=== PATIENT | female | born 1995 | race Caucasian/White ===

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

== ENCOUNTER 2017-10-28 01:33 | Emergency (ER) | payer BC ==
--- NOTE | 2017-10-28 01:38 | EDPHY ---
H & P Time Seen by Provider: 10/28/17 01:36 HPI/ROS: HPI CHIEF COMPLAINT: Alcohol Intoxication HISTORY OF PRESENT ILLNESS: 22-year-old female, presents emergency room by EMS for acute alcohol intoxication and possibly ketamine use. Patient is lethargic. Blood glucose by EMS 88. Patient presents with stable vital signs. Is reported that she did ketamine and a large amount of alcohol this evening. Past Medical History: Unknown medical history Past Surgical History: Unknown surgical history Social History: Alcohol and ketamine, this evening Family History: Unknown ROS REVIEW OF SYSTEMS: Limited due to mental state. Exam Constitutional Intoxicated, lethargic, triage nursing summary reviewed, vital signs reviewed, Sleepy, smells of alcohol Eyes normal conjunctivae and sclera, horizontal beating nystagmus consistent acute alcohol intoxication, otherwise pupils equal and react to light HENT normal inspection, atraumatic, moist mucus membranes, no epistaxis, neck supple/ no meningismus, no raccoon eyes. Respiratory clear to auscultation bilaterally, normal breath sounds, no respiratory distress, no wheezing. Cardiovascular rate normal, regular rhythm, no murmur, no edema, distal pulses normal. Gastrointestinal soft, non-tender, no rebound, no guarding, normal bowel sounds, no distension, no pulsatile mass. Genitourinary no CVA tenderness. Musculoskeletal no midline vertebral tenderness, full range of motion, no calf swelling, no tenderness of extremities, no meningismus, good pulses, neurovascularly intact. Skin pink, warm, & dry, no rash, skin atraumatic. Neurologic sleepy, intoxicated with alcohol,, alert and oriented x 3, AAOx3, moves all 4 extremities equally, motor intact, sensory intact, CN II-XII intact , , normal vision, normal speech. Psychiatric normal mood/affect. Heme/Lymph/Immune no lymphadenopathy. Differential Diagnosis: Includes but is not limited to in a particular order acute alcohol intoxication, alcohol abuse, dehydration, electrolyte abnormality , nausea vomiting from acute alcohol intoxication Medical Decision Making: Plan for this patient full quality assurance monitor final with pulse ox, IV establishment blood draw, check drug screen, alcohol level, gentle IV fluids. Watch for further sedation. Re-evaluation: Serum alcohol level 374 2:40 a.m.. 0647: Patient ambulated well throughout the emergency room without difficulty. Sober. Stable gait. Safe for discharge. Source: Patient, EMS Constitutional: Initial Vital Signs Temperature (C) 36.4 C 10/28/17 01:43 Heart Rate 59 L 10/28/17 01:43 Respiratory Rate 20 10/28/17 01:43 Blood Pressure 105/60 10/28/17 01:43 O2 Sat (%) 95 10/28/17 01:43 O2 Delivery Mode Room Air Allergies/Adverse Reactions: Unable to Assess Allergy (Unverified 10/28/17 01:42) Home Medications: Medication Instructions Recorded Unobtainable 10/28/17 Medical Decision Making - Data Points Laboratory Results: Laboratory Results 10/28/17 02:00 10/28/17 02:00 Medications Given: Discontinued Medications Sodium Chloride (Ns) 1,000 mls @ 0 mls/hr IV EDNOW ONE; Wide Open PRN Reason: Protocol Stop: 10/28/17 01:36 Last Admin: 10/28/17 01:46 Dose: 1,000 mls Departure - Departure Disposition: Home, Routine, Self-Care Clinical Impression: Alcoholic intoxication Qualifiers: Complication of substance-induced condition: uncomplicated Qualified Code(s): F10.920 - Alcohol use, unspecified with intoxication, uncomplicated Condition: Good Instructions: Alcohol Intoxication (ED), Abuse of Alcohol (ED) Referrals: Patient,NotPresent [Unknown] - As per Instructions
[2017-10-28] MEDS: NS 1,000 ML IV ONE (01:46)
[2017-10-28 02:09] LABS: PLATELET COUNT 253 10^3/uL (150-400)
[2017-10-28 07:19] VITALS: BP 106/73
== END 2017-10-28 07:35 | disposition home or self-care (01) ==
LOC: EDUNIT#
DX: F10.129 Alcohol abuse with intoxication, unspecified (principal); F13.129 Sedative, hypnotic or anxiolytic abuse with intoxication, unspecified; E86.9 Volume depletion, unspecified; Y90.8 Blood alcohol level of 240 mg/100 ml or more
CPT/HCPCS: G0480